=== PATIENT | female | born 1945 | race Caucasian/White ===

== ENCOUNTER 2022-03-18 17:11 | Observation (INO) | payer MEDICARE ==
[~2022-03-18] VITALS: Ht 180.3 cm; Wt 55.3 kg
[~2022-03-18 17:11] MED LIST: ADULT LOW DOSE81 MG PO; ASPIR 8181 MG PO; BENTYL 10MG CAP10 MG PO; BENTYL 20MG TAB20 MG PO; BYDUREON P2 MG/0.65 SQ; CARAFATE1 GM PO; CITRATE OF MAG296 ML PO; CREON DR 24,001 EACH PO; CYMBALTA 20 MG20 MG PO; ENALAPRIL MALEA10 MG PO; ISOSORBIDE MONO60 MG PO; LANTUS100 UNIT/1 SQ; LIPITOR TAB 2020 MG PO; LOPRESSOR50 MG PO; METFORMIN HCL500 M2 PO; METHOCARBAMOL500 MG PO; NORCO 5-325 TA1 EACH PO; NORVASC 5 MG TAB5 MG PO; NOVOLOG FL100 UNIT/1 SQ; PHENERGAN 12.12.5 M1 PO; PHENERGAN12.5 MG PR; PLAVIX75 MG PO; PROTONIX40 MG PO; TOPROL XL25 MG PO; TRAZODONE HCL100 MG PO; TYLENOL 325MG325 MG PO; ZOFRAN 4 MG TAB4 MG PO; ZOFRAN ODT4 MG PO; ZOVIRAX 800 MG800 MG PO
[2022-03-18 18:05] LABS: RED BLOOD COUNT 4.34 M/UL (4.00-5.10); WHITE BLOOD COUNT 6.8 K/UL (4.5-11.0)
[2022-03-19] MEDS ORDERED: AMLODIPINE BESYL5 MG PO (09:31)
[2022-03-19] MEDS ORDERED: RANOLAZINE ER500 MG PO (09:32)
[2022-03-19] MEDS ORDERED: ATORVASTATIN CA80 MG PO (09:33)
[2022-03-19] MEDS ORDERED: FENOFIBRATE145 MG PO (09:34)
[2022-03-19] MEDS ORDERED: HUMALOG100 UNIT/3 SC (09:35)
[2022-03-19] MEDS ORDERED: FEROSUL325 MG PO (09:35)
[2022-03-19] MEDS ORDERED: OXYCODONE-ACET1 EACH PO (09:36)
[2022-03-19] MEDS ORDERED: JARDIANCE10 MG PO (09:38)
[2022-03-19] MEDS ORDERED: VASOTEC10 MG PO (09:39)
[2022-03-20 04:23] LABS: HEMOGLOBIN 13.8 gm/dl (12.3-15.3); RED BLOOD COUNT 4.31 M/UL (4.00-5.10); WHITE BLOOD COUNT 7.1 K/UL (4.5-11.0)
[2022-03-20] MEDS ORDERED: PREGABALIN75 MG PO (17:16)
[2022-03-20] MEDS ORDERED: LIPITOR40 MG PO (17:16)
== END 2022-03-20 18:22 | disposition home or self-care (01) ==
LOC: ER1 17:11 → CDU 20:57 → M/S 20:57
PROVIDERS: Family Medicine; Internal Medicine; ADMIT Internal Medicine
DX: R07.89 Other chest pain (principal); I10 Essential (primary) hypertension; E11.42 Type 2 diabetes mellitus with diabetic polyneuropathy; E78.5 Hyperlipidemia, unspecified; I25.119 Atherosclerotic heart disease of native coronary artery with unspecified angina pectoris; I16.9 Hypertensive crisis, unspecified; Z79.4 Long term (current) use of insulin; Z79.84 Long term (current) use of oral hypoglycemic drugs; Z79.899 Other long term (current) drug therapy; Z86.73 Personal history of transient ischemic attack (TIA), and cerebral infarction without residual deficits; Z91.018 Allergy to other foods; Z91.041 Radiographic dye allergy status; Z95.5 Presence of coronary angioplasty implant and graft
CPT/HCPCS: ECHO; 36415; 70450; 71045; 78452; 80048; 80053; 80061; 82550; 82553; 82607; 82962; 83036; 83735; 84439; 84443; 84484; 85025; 93005; 93017; 93306; 96374; 96376; 99285; A9502; G0378; J2270; J2785; J7030

== ENCOUNTER 2022-04-09 16:04 | Observation (INO) | payer MEDICARE ==
[~2022-04-09] VITALS: Ht 149.9 cm; Wt 58.1 kg
[~2022-04-09 16:04] MED LIST changes: +AMLODIPINE BESYL5 MG PO; +ATORVASTATIN CA80 MG PO; +FENOFIBRATE145 MG PO; +FEROSUL325 MG PO; +HUMALOG100 UNIT/3 SC; +JARDIANCE10 MG PO; +LIPITOR40 MG PO; +OXYCODONE-ACET1 EACH PO; +PREGABALIN75 MG PO; +RANOLAZINE ER500 MG PO; +VASOTEC10 MG PO
[2022-04-09 17:20] LABS: HEMOGLOBIN 14.4 gm/dl (12.3-15.3); RED BLOOD COUNT 4.43 M/UL (4.00-5.10); WHITE BLOOD COUNT 6.2 K/UL (4.5-11.0)
[2022-04-10] MEDS ORDERED: ASPIRIN EC81 MG PO (11:09)
[2022-04-10] MEDS ORDERED: TRESIBA FL100 UNIT/1 SQ (11:10)
[2022-04-10] MEDS ORDERED: ESTRADIOL42.5 GM VG (11:11)
--- NOTE | 2022-04-11 12:47 | NUR ---
04/11/22 1245 REPORT CALLED TO AGUILAR AT [facility] AT [phone]
== END 2022-04-11 13:33 | disposition home or self-care (01) ==
LOC: ER1 16:04 → MED SURG 4 20:37 → CDU 20:37 → MED SURG 4 22:27
PROVIDERS: Internal Medicine; ADMIT Internal Medicine
DX: R47.81 Slurred speech (principal); I25.10 Atherosclerotic heart disease of native coronary artery without angina pectoris; I10 Essential (primary) hypertension; E78.5 Hyperlipidemia, unspecified; E11.40 Type 2 diabetes mellitus with diabetic neuropathy, unspecified; E11.65 Type 2 diabetes mellitus with hyperglycemia; E86.0 Dehydration; Z86.73 Personal history of transient ischemic attack (TIA), and cerebral infarction without residual deficits; Z95.5 Presence of coronary angioplasty implant and graft; Z91.041 Radiographic dye allergy status; Z79.82 Long term (current) use of aspirin; Z79.02 Long term (current) use of antithrombotics/antiplatelets; Z79.4 Long term (current) use of insulin; Z79.899 Other long term (current) drug therapy
CPT/HCPCS: 96360; 96361; 96372; 96375; 96376; 36415; 70450; 70544; 70551; 71045; 80048; 80053; 80061; 81001; 82550; 82553; 82962; 84484; 85025; 85610; 85730; 92507; 93005; 93308; 93880; 97116; 97162; 99285; G0378; J1650